=== PATIENT | male | born 1990 | race African-American/Black ===

== ENCOUNTER 2016-10-17 03:55 | Emergency (ER) | payer OTHER ==
[~2016-10-17] VITALS: Ht 175.3 cm; Wt 59.0 kg
[2016-10-17] MEDS ORDERED: VENTOLIN HFA 1818 GM INH (04:01)
[2016-10-17 05:01] VITALS: BP 101/56
== END 2016-10-17 05:03 | disposition home or self-care (01) ==
LOC: ER 03:55
DX: K02.9 Dental caries, unspecified (principal); J45.909 Unspecified asthma, uncomplicated; F12.10 Cannabis abuse, uncomplicated